=== PATIENT | male | born 1995 | race Caucasian/White ===

== ENCOUNTER 2021-02-20 22:04 | Emergency (ER) | payer SELFPAY ==
[2021-02-20 22:06] VITALS: BP 142/103; PULSE 119; RESP 18; TEMP 36.7; O2SAT 100; BMI 22.1
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
[2021-02-20] MEDS: cephALEXin 500 mg Capsule PO (22:27)
[2021-02-20] MEDS: HYDROcodone-acetaminophen 7.5-325 mg Tablet 1 TAB PO (22:27)
[2021-02-20 22:44] VITALS: BP 140/87; PULSE 103; RESP 18; O2SAT 98
[2021-02-20 22:48] VITALS: BP 140/87; PULSE 103; O2SAT 98
--- NOTE | 2021-02-20 23:26 | PC.NURSE ---
PD called, they chose not to come see the patient
== END 2021-02-20 23:28 | disposition home or self-care (01) ==
PROVIDERS: Emergency Provider Nurse Practitioner Family
DX: S61.235A Puncture wound without foreign body of left ring finger without damage to nail, initial encounter (principal); S61.233A Puncture wound without foreign body of left middle finger without damage to nail, initial encounter; W32.0XXA Accidental handgun discharge, initial encounter
CPT/HCPCS: 73130; 99283

== ENCOUNTER 2021-06-27 03:10 | Emergency (ER) | payer OTHER, SELFPAY ==
[2021-06-27 03:21] VITALS: BP 163/106; PULSE 83; RESP 18; TEMP 36.2; O2SAT 100; BMI 23.6
--- NOTE | 2021-06-27 03:50 | XRR_ITS ---
PROCEDURE INFORMATION: Exam: XR Chest Exam date and time: 06/27/2021 3:50 AM Age: 25 years old Clinical indication: Pain; Patient HX: Heart palpitations; Additional info: Cp TECHNIQUE: Imaging protocol: XR of the chest. Views: 1 view. COMPARISON: No relevant prior studies available. FINDINGS: Lungs: Unremarkable. No consolidation. Pleural spaces: Unremarkable. No pleural effusion. No pneumothorax. Heart/Mediastinum: Unremarkable. No cardiomegaly. Bones/joints: Unremarkable. XR/XR chest 1V portable [id number] IMPRESSION: No acute disease.
[2021-06-27 03:55] VITALS: BP 153/88; PULSE 86; O2SAT 98
--- NOTE | 2021-06-27 04:05 | ED_ITS ---
HPI - Arrhythmia/Palpitations General: Chief Complaint: Arrhythmia/Palpitations Stated Complaint: chest pain Time Seen by Provider: 06/27/21 03:37 History of Present Illness: HPI narrative: 25-year-old male presenting with intermittent left-sided chest discomfort on and off for the past 5 to 6 days. He states he vomited a couple of times on Tuesday, and had some chest discomfort. He also had some palpitations. He has had this intermittently since that time. He denies any cough, fever, leg swelling, long car trips or airplane rides, other symptoms. He had another episode before coming into the ER this morning. 50% MD complaint: palpitations Onset (ago): day(s) Duration: intermittent Severity: moderate Context: other Associated symptoms: Reports nausea; Deny cough, diaphoresis, muscle cramps, paresthesias, pre-syncope or vomiting Review of Systems Const: Denies: diaphoresis Card: Denies: pre-syncope GI: Reports: nausea; Denies: vomiting Musc: Denies: muscle cramps Physical Exam Const: COMMON NORMALS: no acute distress GENERAL APPEARANCE: cooperative and comfortable; not ill appearing HENMT: COMMON NORMALS: normocephalic HEAD & SCALP: normocephalic Eye: COMMON NORMALS: Equal, round and reactive pupils present and EOMs intact bilaterally PUPIL: Yes Equal, round and reactive pupils present Chest: COMMONS NORMALS: normal inspection of the chest Resp: COMMON NORMALS: normal respiratory effort, No retractions, No use of accessory muscles and clear to auscultation bilaterally AUSCULTATION: clear to auscultation bilaterally Cardio: COMMON NORMALS: regular rate and regular rhythm RATE: regular rate RHYTHM: regular rhythm GI: COMMON NORMALS: Normal to inspection, nondistended, normoactive bowel sounds present, Soft to palpation and non-tender PALPATION: Yes Soft to palpation Extremity: GENERAL: No edema Course Vital Signs: Vital signs: Vital Signs Temperature 97.1 F L 06/27/21 03:21 Pulse Rate 86 06/27/21 03:55 Respiratory Rate 18 06/27/21 03:21 Blood Pressure 153/88 06/27/21 03:55 Pulse Oximetry 98 06/27/21 03:55 MDM - Arrhythmia/Palpitations MDM Narrative: Medical decision making narrative: 25-year-old male with chest discomfort intermittently and palpitations. CBC and BMP are unremarkable. Troponin is 6. Chest x-ray is negative. D-dimer is nondetectable. EKG shows a normal sinus rhythm with normal axis and normal rate. Lab Data: Labs: Lab Results 06/27/21 06/27/21 06/27/21 Range/Units 04:00 04:00 04:00 WBC 5.2 (4.0-10.0) 10^3/ uL RBC 5.30 (4.1-5.3) 10^6/u L Hgb 16.4 (11.7-16.6) g/dL Hct 49.2 (42.0-52.0) % MCV 92.8 (80-94) fl MCH 30.9 (28.0-34.0) pg MCHC 33.3 (30.0-36.0) g/dL RDW 11.8 L (12.1-15.1) % Plt Count 260 (130-400) 10^3/c mm MPV 9.7 (7.4-10.4) fL Neut % (Auto) 39.7 % Lymph % (Auto) 46.1 % [place] % (Auto) 8.1 % Eos % (Auto) 4.6 % Baso % (Auto) 1.3 % Neut # (Auto) 2.07 (1.8-7.7) 10^3/u L Lymph # (Auto) 2.4 (0.8-4.8) 10^3/u L [place] # (Auto) 0.4 (0.2-0.9) 10^3/u L Eos # (Auto) 0.2 (0.0-0.8) 10^3/u L Baso # (Auto) 0.1 (0.0-0.1) 10^3/u L Nucleated RBC % (a uto) 0 % Nucleated RBCs # 0.0 /100WBC D-Dimer <= 0.27 (0-0.59) ug/mIFE U Sodium 141 (136-145) mmol/L Potassium 4.0 (3.5-5.1) mmol/L Chloride 104 (98-107) mmol/L Carbon Dioxide 26 (22-29) mmol/L Anion Gap 15.0 (5-19) BUN 12 (6-20) mg/dL Creatinine 0.8 (0.7-1.2) mg/dL GFR Calculation 116.0 (90-130) mL/min Glucose 102 (65-115) mg/dL Calculated Osmolal ity 292 (285-295) mOsm/k g Calcium 10.0 (8.5-10.5) mg/dL Total Bilirubin 0.6 (0.15-1.2) mg/dL AST 20 (0-40) U/L ALT 32 (0-41) U/L Alkaline Phosphata se 101 (40-130) IU/L Troponin T Gen 5 n g/L (0-15) ng/L Total Protein 7.7 (6.6-8.7) g/dL Albumin 4.8 (3.5-5.2) g/dL Globulin 2.9 (1.3-4.6) g/dL 06/27/21 Range/Units 04:00 WBC (4.0-10.0) 10^3/ uL RBC (4.1-5.3) 10^6/u L Hgb (11.7-16.6) g/dL Hct (42.0-52.0) % MCV (80-94) fl MCH (28.0-34.0) pg MCHC (30.0-36.0) g/dL RDW (12.1-15.1) % Plt Count (130-400) 10^3/c mm MPV (7.4-10.4) fL Neut % (Auto) % Lymph % (Auto) % [place] % (Auto) % Eos % (Auto) % Baso % (Auto) % Neut # (Auto) (1.8-7.7) 10^3/u L Lymph # (Auto) (0.8-4.8) 10^3/u L [place] # (Auto) (0.2-0.9) 10^3/u L Eos # (Auto) (0.0-0.8) 10^3/u L Baso # (Auto) (0.0-0.1) 10^3/u L Nucleated RBC % (a uto) % Nucleated RBCs # /100WBC D-Dimer (0-0.59) ug/mIFE U Sodium (136-145) mmol/L Potassium (3.5-5.1) mmol/L Chloride (98-107) mmol/L Carbon Dioxide (22-29) mmol/L Anion Gap (5-19) BUN (6-20) mg/dL Creatinine (0.7-1.2) mg/dL GFR Calculation (90-130) mL/min Glucose (65-115) mg/dL Calculated Osmolal ity (285-295) mOsm/k g Calcium (8.5-10.5) mg/dL Total Bilirubin (0.15-1.2) mg/dL AST (0-40) U/L ALT (0-41) U/L Alkaline Phosphata se (40-130) IU/L Troponin T Gen 5 n g/L 6 (0-15) ng/L Total Protein (6.6-8.7) g/dL Albumin (3.5-5.2) g/dL Globulin (1.3-4.6) g/dL Discharge Plan Discharge Patient Disposition: Home Clinical Impression: Chest pain Qualifiers: Chest pain type: unspecified Qualified Code(s): R07.9 - Chest pain, unspecified Condition: Stable Prescriptions: New Medrol (Srikanth) 4 mg tablets,dose pack See Rx Instructions .ROUTE .COMPLEX Qty: 21 RF: 0 No Action hydrocodone-acetaminophen 5-325 mg tablet 1 tab PO Q6H PRN (Reason: pain) Qty: 14 RF: 0 Discharge Orders: Discharge ED (Routine); Ordered 06/27/21 Ordered By: Kareem Willoughby Discharge Diet: Advance as tolerated Discharge Activity: Increase activity as tolerated Patient Instructions: Chest Pain (ED) Activity Restrictions/Additional Instructions: Return to the ER for worsening pain despite treatment, fever greater than 100, shortness of breath, worsening palpitations or fast heart rate, any other con cerning symptoms. Coding Level of Care Code ED Parks Recreation Coordinator for Isaac Fwd Exam Comprehensive
[2021-06-27 04:19] LABS: Basophils # 0.1 10^3/uL (0.0-0.1); Basophils % 1.3 %; Eosinophils # 0.2 10^3/uL (0.0-0.8); Eosinophils % 4.6 %; Hematocrit 49.2 % (42.0-52.0); Hemoglobin 16.4 g/dL (11.7-16.6); Lymphocytes # 2.4 10^3/uL (0.8-4.8); Lymphocytes % 46.1 %; Mean Corpuscular HGB Conc 33.3 g/dL (30.0-36.0); Mean Corpuscular Hemoglobin 30.9 pg (28.0-34.0); Mean Corpuscular Volume 92.8 fl (80-94); Mean Platelet Volume 9.7 fL (7.4-10.4); Monocytes # 0.4 10^3/uL (0.2-0.9); Monocytes % 8.1 %; Neutrophils # 2.07 10^3/uL (1.8-7.7); Neutrophils % 39.7 %; Nucleated Red Blood Cells % 0 %; Platelet Count 260 10^3/cmm (130-400); Red Cell Distribution Width 11.8 % (12.1-15.1); White Blood Count 5.2 10^3/uL (4.0-10.0)
[2021-06-27 04:36] LABS: Alanine Aminotransferase 32 U/L (0-41); Albumin Level 4.8 g/dL (3.5-5.2); Alkaline Phosphatase 101 IU/L (40-130); Aspartate Amino Transferase 20 U/L (0-40); Blood Urea Nitrogen 12 mg/dL (6-20); Carbon Dioxide 26 mmol/L (22-29); Chloride 104 mmol/L (98-107); Globulin 2.9 g/dL (1.3-4.6); Glucose 102 mg/dL (65-115); Osmolality Calculated 292 mOsm/kg (285-295); Sodium 141 mmol/L (136-145); Total Bilirubin 0.6 mg/dL (0.15-1.2); Total Protein 7.7 g/dL (6.6-8.7)
[2021-06-27 04:40] LABS: Troponin T (5th) Once 6 ng/L (0-15)
[2021-06-27 05:08] LABS: D Dimer <= 0.27 ug/mIFEU (0-0.59)
[2021-06-27 05:49] VITALS: BP 127/79; PULSE 92; RESP 18; O2SAT 98
--- NOTE | 2021-06-29 13:37 | DCPLANNER ---
Addendum entered by Gabriela Bearden 07/01/21 10:03: manager msw had message that patient called back and wanted a primary care physician. manager msw called patient, he stated that he did want a primary care physician. manager msw called [facility], spoke with Alexia, gave clinic patients information. A follow up appointment was scheduled for Tuesday, July 06, 2021 at 4:[address] Benitez at [facility]. manager msw called patient and gave patient the appointment information. Addendum entered by Gabriela Bearden 06/29/21 13:39: Patient called case briefer back, stating that he did not want to get established with anyone at this time. Original Note: manager msw had message to speak with patient about getting established with a primary care physician. manager msw called phone number [phone], unable to speak with patient at this time, a voicemail was left for patient to return child support case officer phone call.
--- NOTE | 2021-07-08 12:05 | DCPLANNER ---
Patient had a follow up appointment scheduled for 07.06.[address] Badillo at [facility] - appointment was cancelled.
== END 2021-06-27 05:52 | disposition home or self-care (01) ==
PROVIDERS: Emergency Provider Emergency Medicine
DX: R07.9 Chest pain, unspecified (principal)
CPT/HCPCS: 71045; 80053; 84484; 85025; 85378; 99283

== ENCOUNTER 2022-03-25 19:43 | Emergency (ER) | payer OTHER, SELFPAY ==
[2022-03-25 19:49] VITALS: BP 141/85; PULSE 80; RESP 18; TEMP 36.7; O2SAT 99
--- NOTE | 2022-03-25 19:55 | ECG_ITS ---
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 Measurements Intervals [place] Rate: 88 P: 66 NE: 147 QRS: 65 QRSD: 99 T: 57 QT: 325 QTc: 395 Interpretive Statements SINUS RHYTHM POSSIBLE RIGHT VENTRICULAR CONDUCTION DELAY [RSR (QR) IN V1/V2] MODERATE ST DEPRESSION [0.05+ mV ST DEPRESSION] No previous ECG available for comparison Electronically Signed On 03-25-2022 22:52:34 CDT by Moses Montoya M.D. [id number]
--- NOTE | 2022-03-25 20:38 | XRR_ITS ---
PROCEDURE INFORMATION: Exam: XR Chest Exam date and time: 03/25/2022 9:00 PM Age: 26 years old Clinical indication: Shortness of breath; Additional info: KATHERINE Raymond TECHNIQUE: Imaging protocol: XR of the chest. Views: 1 view. COMPARISON: CR (CHEST, ) 06/27/2021 3:49 AM FINDINGS: Lungs: Unremarkable. No consolidation. Pleural spaces: Unremarkable. No pleural effusion. No pneumothorax. Heart/Mediastinum: Unremarkable. No cardiomegaly. Bones/joints: Unremarkable. XR/XR chest 1V portable [id number] IMPRESSION: No acute findings.
--- NOTE | 2022-03-25 22:15 | ED_ITS ---
HPI - Chest Pain General: Chief Complaint: Chest Pain Stated Complaint: CP Time Seen by Provider: 03/25/22 22:15 History of Present Illness: A 26-year-old male patient comes in today with some complaints of chest discomfort. Patient reports nothing improves or worsens the pain. Patient denies any fever or chills or nausea or vomiting. Patient appears well. Patient appears in no pain. Patient moves all extremities without discomfort. 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 Patient believes that may be contributing to his discomfort. Patient has a history of anxiety but reports no problems with anxiety over the last few weeks. Patient stopped smoking 2 years ago. Family history has no cardiac problems. Associated symptoms: Deny dyspnea or fever(s) Review of Systems Const: Denies: fever(s) Card: Denies: chest pain Resp: Denies: dyspnea Musc: Denies: extremity pain Skin/Breast: Denies: rash Physical Exam Const: COMMON NORMALS: alert HENMT: COMMON NORMALS: normocephalic HEAD & SCALP: normocephalic Neck/C-Spine: COMMON NORMALS: full ROM Chest: COMMONS NORMALS: normal palpation of entire chest wall Resp: COMMON NORMALS: normal respiratory effort and clear to auscultation bilaterally AUSCULTATION: clear to auscultation bilaterally Cardio: COMMON NORMALS: regular rate RATE: regular rate GI: AUSCULTATION: Yes normoactive bowel sounds PALPATION: No Tenderness to palpation present (GI) : COMMON NORMALS: Yes no CVA tenderness BLADDER/KIDNEY EXAM: Yes no CVA tenderness Back/Pelvis: COMMON NORMALS: no CVA tenderness Extremity: NARRATIVE EXTREMITY EXAM: No calf tenderness or swelling of the lower legs. Neuro: SENSORIUM/ORIENTATION: Yes alert Skin: COMMON NORMALS: no rashes or lesions noted GENERAL SKIN EXAM: no rashes or lesions noted Course Vital Signs: Vital signs: Vital Signs Temperature 98.0 F 03/25/22 19:49 Pulse Rate 80 03/25/22 19:49 Respiratory Rate 18 03/25/22 19:49 Blood Pressure 141/85 03/25/22 19:49 Pulse Oximetry 99 03/25/22 19:49 MDM - Chest Pain Medical Decision Making 26-year-old male patient comes in today with some complaints of chest discomfort. Patient is nonspecific with his complaint. On exam patient does have some mild chest wall tenderness on palpation but nothing significant. Patient moves all extremities well. Heart rates regular. Skin is warm and dry. No calf pain is noted. No swelling is noted in the lower extremities. Differential diagnosis includes anxiety, depression, costochondritis, pneumothorax. Chest x-ray was unremarkable. EKG showed a sinus rhythm without any ST elevation or other abnormality. Reviewed the exam with patient recommended follow-up with primary care for further evaluation and treatment. Patient reported understanding and agreed to plan with need for follow-up. Lab Data Radiology Impressions Chest X-Ray 03/25/22 20:38 IMPRESSION: No acute findings. Discharge Plan Discharge Patient Disposition: Home Clinical Impression: Atypical chest pain Condition: Stable Prescriptions: Discontinued methylprednisolone [Medrol (Srikanth)] 4 mg tablets,dose pack See Rx Instructions .ROUTE .COMPLEX Qty: 21 0RF Rx Instructions: orally per package directions hydrocodone-acetaminophen 5-325 mg tablet 1 tab PO Q6H PRN (Reason: pain) Qty: 14 0RF Discharge Orders: Discharge ED (Routine); Ordered 03/25/22 Ordered By: Todd Ndiaye Discharge Diet: Usual diet Discharge Activity: Resume usual activity Patient Instructions: Chest Pain (ED) Activity Restrictions/Additional Instructions: Home and rest. Drink plenty of fluids. Avoid caffeinated beverages. Maintain a healthy lifestyle with plenty of fresh fruits and vegetables and routine exercise. Follow-up with primary care for further instructions. Have your blood pressure rechecked. Return to ER for worsening symptoms such as worsening chest pain, increasing shortness of breath, high fever greater than 100.4, or bloody sputum. Coding Level of Care Code ED Ground Operations Superintendent for Isaac Mobley
== END 2022-03-25 22:50 | disposition home or self-care (01) ==
PROVIDERS: Emergency Provider Nurse Practitioner Family
DX: R07.89 Other chest pain (principal)
CPT/HCPCS: 71045; 93005; 99283

== ENCOUNTER 2024-07-07 04:27 | Emergency (ER) | payer SELFPAY ==
[2024-07-07 04:34] VITALS: BP 145/90; PULSE 127; RESP 18; TEMP 37.1; O2SAT 100; BMI 22.1
--- NOTE | 2024-07-07 04:40 | ECG_ITS ---
[facility] Test Date: 2024-07-07 Pat Name: Spike Shea Department: Room: Gender: Male Assistant Manager Of Operations: : 1995 Requested By: Kareem Perdomo Order Number: [id number] Beni MD: Moses Montoya M.D. Measurements Intervals [place] Rate: 126 P: 74 UT: 170 QRS: 75 QRSD: 98 T: 63 QT: 339 QTc: 491 Interpretive Statements SINUS TACHYCARDIA INCOMPLETE RIGHT BUNDLE BRANCH BLOCK [90+ ms QRS DURATION, TERMINAL R IN V1/V2, 40+ ms S IN I/aVL/V4/V5/V6] Compared to ECG 03/25/2022 19:55:07 Incomplete right bundle-branch block now present Sinus rhythm no longer present ST (T wave) deviation no longer present Electronically Signed On 07-07-2024 7:20:05 CDT by Moses Montoya M.D. [id number]
[2024-07-07 04:56] LABS: Basophils # 0.1 10^3/uL (0.0-0.1); Basophils % 1.3 %; Eosinophils % 0.1 %; Hematocrit 45.8 % (37-53); Lymphocytes # 1.5 10^3/uL (0.8-4.8); Lymphocytes % 21.7 %; Mean Corpuscular HGB Conc 34.1 g/dL (30-55); Mean Corpuscular Volume 91.1 fl (82-101); Mean Platelet Volume 9.7 fL (7.4-10.4); Monocytes # 0.4 10^3/uL (0.2-0.9); Monocytes % 6.1 %; Neutrophils # 4.85 10^3/uL (1.8-7.7); Neutrophils % 70.5 %; Nucleated Red Blood Cells % 0 %; Platelet Count 326 10^3/cmm (157-399); Red Blood Count 5.03 10^6/uL (3.85-5.65); Red Cell Distribution Width 12.7 % (12.1-15.1); White Blood Count 6.88 10^3/uL (3.29-11.43)
[2024-07-07 05:00] VITALS: BP 131/87; PULSE 114; RESP 28; O2SAT 100
--- NOTE | 2024-07-07 05:09 | W.ED.ARRPALP ---
HPI - Arrhythmia/Palpitations General: Chief Complaint: Arrhythmia/Palpitations Stated Complaint: Fast heartrate shooting pain L arm withdrawls Time Seen by Provider: 07/07/24 05:01 History of Present Illness: 28-year-old male with chest discomfort, palpitations, radiating into his left arm. He last had an alcoholic drink about 8 hours ago. He believes this may be alcohol withdrawal, but is not sure. He is had similar symptoms in the past. No history of heart disease or arrhythmia. No recent illness or fever. Related Data Previous Rx's Medication Instructions Recorded chlordiazepoxide HCl 25 mg capsule 25 mg PO Q8H PRN alcohol 07/07/24 withdrawal #10 caps Allergies Allergy/AdvReac Type Severity Reaction Status Date / Time No Known Allergies Allergy Verified 06/27/21 03:20 Physical Exam Const: GENERAL APPEARANCE: cooperative; not ill appearing and not frail appearing HENMT: COMMON NORMALS: normocephalic, atraumatic and Normal external nose present HEAD & SCALP: normocephalic and atraumatic FACE & SINUS: normal facial exam and face symmetric NOSE: Normal external nose present Eye: COMMON NORMALS: Equal, round and reactive pupils present and EOMs intact bilaterally PUPIL: Yes Equal, round and reactive pupils present Neck/C-Spine: GENERAL: Yes trachea midline Chest: CHEST: Yes Symmetrical chest wall rise Resp: COMMON NORMALS: normal respiratory effort, No retractions, No use of accessory muscles and clear to auscultation bilaterally AUSCULTATION: clear to auscultation bilaterally Cardio: COMMON NORMALS: regular rhythm RATE: tachycardic RHYTHM: regular rhythm GI: COMMON NORMALS: Normal to inspection, nondistended, normoactive bowel sounds present Extremity: COMMON NORMALS: no pedal edema Neuro: ANILA COMA SCALE: document GCS findings [place] coma scale eye opening: Spontaneous Anila coma scale verbal response: Orientated [place] coma scale motor response: Obey commands Anila coma scale total score: 15 SENSORY EXAM: Yes extremities (intact) Psych: COMMON NORMALS: speech normal SPEECH: Yes normal speech Skin: COMMON NORMALS: no rashes or lesions noted GENERAL SKIN EXAM: no rashes or lesions noted Course Vital Signs: Vital signs: Vital Signs Temperature 98.7 F 07/07/24 04:34 Pulse Rate 87 07/07/24 06:00 Respiratory Rate 15 07/07/24 06:00 Blood Pressure 144/78 08/31/24 06:00 Pulse Oximetry 98 07/07/24 06:00 Oxygen Delivery Me thod Room Air 07/07/24 06:00 MDM - Arrhythmia/Palpitations Medical Decision Making EKG shows sinus tachycardia with a rate of 120. [place] is normal. Intervals normal. No significant ST wave change. EKG time is 04: 42. CBC is normal. Other laboratory not terribly remarkable. He does have a slight anion gap. He received fluids, thiamine, and a small dose of metoprolol. Heart rate is now 87. Symptoms are improved. He did receive 1 dose of IV Ativan as well. He will go home on chlordiazepoxide taper for alcohol withdrawal. Oral hydration. Return for worsening symptoms. Lab Data 07/07/24 04:50 07/07/24 04:50 Radiology Impressions Chest X-Ray 07/07/24 05:12 IMPRESSION: No acute findings. Laboratory Results WBC 6.88 10^3/uL (3.29-11.43) 07/07/24 04:50 RBC 5.03 10^6/uL (3.85-5.65) 07/07/24 04:50 Hgb 15.60 g/dL (11.27-16.99) 07/07/24 04:50 Hct 45.8 % (37-53) 07/07/24 04:50 MCV 91.1 fl (82-101) 07/07/24 04:50 MCH 31.0 pg (27-33) 07/07/24 04:50 MCHC 34.1 g/dL (30-55) 07/07/24 04:50 RDW 12.7 % (12.1-15.1) 07/07/24 04:50 Plt Count 326 10^3/cmm (157-399) 07/07/24 04:50 MPV 9.7 fL (7.4-10.4) 07/07/24 04:50 Neut % (Auto) 70.5 % 07/07/24 04:50 Lymph % (Auto) 21.7 % 07/07/24 04:50 [place] % (Auto) 6.1 % 07/07/24 04:50 Eos % (Auto) 0.1 % 07/07/24 04:50 Baso % (Auto) 1.3 % 07/07/24 04:50 Neut # (Auto) 4.85 10^3/uL (1.8-7.7) 07/07/24 04:50 Lymph # (Auto) 1.5 10^3/uL (0.8-4.8) 07/07/24 04:50 [place] # (Auto) 0.4 10^3/uL (0.2-0.9) 07/07/24 04:50 Eos # (Auto) 0.0 10^3/uL (0.0-0.8) 07/07/24 04:50 Baso # (Auto) 0.1 10^3/uL (0.0-0.1) 07/07/24 04:50 Nucleated RBC % (auto) 0 % 07/07/24 04:50 Nucleated RBCs # 0.0 /100WBC 07/07/24 04:50 Sodium 139 mmol/L (136-145) 07/07/24 04:50 Potassium 3.6 mmol/L (3.5-5.1) 07/07/24 04:50 Chloride 99 mmol/L (98-107) 07/07/24 04:50 Carbon Dioxide 18 mmol/L (22-29) L 07/07/24 04:50 Anion Gap 25.6 (5-19) H 07/07/24 04:50 BUN 6 mg/dL (6-20) 07/07/24 04:50 Creatinine 0.7 mg/dL (0.7-1.2) 07/07/24 04:50 GFR Calculation 132.4 mL/min (90-130) H 07/07/24 04:50 Glucose 134 mg/dL (65-115) H 07/07/24 04:50 Calculated Osmolality 288 mOsm/kg (285-295) 07/07/24 04:50 Calcium 10.0 mg/dL (8.5-10.5) 07/07/24 04:50 Total Bilirubin 0.7 mg/dL (0.15-1.2) 07/07/24 04:50 AST 22 U/L (0-40) 07/07/24 04:50 ALT 29 U/L (0-41) 07/07/24 04:50 Alkaline Phosphatase 77 U/L (40-130) 07/07/24 04:50 Troponin T Baseline < 6 ng/L (0-15) 07/07/24 04:50 Total Protein 8.1 g/dL (6.6-8.7) 07/07/24 04:50 Albumin 5.1 g/dL (3.5-5.2) 07/07/24 04:50 Globulin 3.0 g/dL (1.3-4.6) 07/07/24 04:50 TSH 2.12 uIU/mL (0.27-4.20) 07/07/24 04:50 Ethyl Alcohol 24 mg/dL (0-10) H 07/07/24 04:50 All radiology interpretation(s) finalized by discharge Discharge Plan Discharge Patient Disposition: Home Clinical Impression: Palpitations, Sinus tachycardia Condition: Stable Prescriptions: New chlordiazepoxide HCl 25 mg capsule 25 mg PO Q8H PRN (Reason: alcohol withdrawal) Qty: 10 0RF Discharge Orders: Discharge ED (Routine); Ordered 07/07/24 Ordered By: Kareem Willoughby Referrals: Jayleen Vides PA [Primary Care Provider] - 1-3 days Patient Instructions: Heart Palpitations (ED), Tachycardia (ED), Opioid Safety, Pain Management Activity Restrictions/Additional Instructions: Hydrate with clear nonalcoholic liquids for the next 48 hours. Take medication 3 times daily for 2 days, twice daily for a day, and once daily for a day. This is to prevent alcohol withdrawal. See your doctor next week. Return for worsening symptoms. Coding Level of Care Code ED Project Specialist for Isaac Mobley
--- NOTE | 2024-07-07 05:11 | PC.NURSE ---
WATER PROVIDED TO PT PER REQUEST AND PROVIDER APPROVAL, WATER AND COFFEE PROVIDED TO SIGNIFICANT OTHER. PT DENIES FURTHER NEEDS, NO ACUTE DISTRESS NOTED.
--- NOTE | 2024-07-07 05:12 | XRR_ITS ---
PROCEDURE INFORMATION: Exam: XR Chest Exam date and time: 07/07/2024 5:22 AM Age: 28 years old Clinical indication: Pain; Chest pressure; Patient HX: C/O chest discomfort with palpitations; Additional info: Chest pain palpitation TECHNIQUE: Imaging protocol: Radiologic exam of the chest. Views: 1 view. COMPARISON: CR XR chest 1V portable [id number] 03/25/2022 9:00 PM FINDINGS: Lungs: Unremarkable. No consolidation. Pleural spaces: Unremarkable. No pleural effusion. No pneumothorax. Heart/Mediastinum: Unremarkable. No cardiomegaly. Bones/joints: Unremarkable. XR/XR chest 1V portable [id number] IMPRESSION: No acute findings.
[2024-07-07 05:15] VITALS: BP 130/78; PULSE 100; RESP 24; O2SAT 100
[2024-07-07 05:15] LABS: Troponin(5th) Baseline < 6 ng/L (0-15)
[2024-07-07 05:17] LABS: Alanine Aminotransferase 29 U/L (0-41); Albumin Level 5.1 g/dL (3.5-5.2); Alkaline Phosphatase 77 U/L (40-130); Anion Gap 25.6 (5-19); Aspartate Amino Transferase 22 U/L (0-40); Blood Urea Nitrogen 6 mg/dL (6-20); Carbon Dioxide 18 mmol/L (22-29); Chloride 99 mmol/L (98-107); Creatinine Clr Calc Pharmacy 151.9825; Glomerular Filtration Rate 132.4 mL/min (90-130); Glucose 134 mg/dL (65-115); Osmolality Calculated 288 mOsm/kg (285-295); Potassium 3.6 mmol/L (3.5-5.1); Sodium 139 mmol/L (136-145); Total Bilirubin 0.7 mg/dL (0.15-1.2); Total Protein 8.1 g/dL (6.6-8.7)
[2024-07-07 05:30] VITALS: BP 139/83; PULSE 98; RESP 27; O2SAT 100
[2024-07-07 05:40] LABS: Alcohol Level 24 mg/dL (0-10); Thyroid Stimulating Hormone 2.12 uIU/mL (0.27-4.20)
[2024-07-07] MEDS: metoprolol tartrate 1 mg/1 mL SDV 5 mL 2.5 MG IVP (05:43)
[2024-07-07] MEDS: sodium chloride 0.9% 1,000 ML 999 ML IV (05:43)
[2024-07-07] MEDS: LORazepam 2 mg/mL INJ 1 mL 1 MG IVP (05:46)
[2024-07-07 06:00] VITALS: BP 144/78; PULSE 87; RESP 15; O2SAT 98
[2024-07-07 06:30] VITALS: BP 128/76; PULSE 86; RESP 24; O2SAT 98
== END 2024-07-07 07:08 | disposition home or self-care (01) ==
PROVIDERS: Emergency Provider Emergency Medicine; PCP Physician Assistant
DX: R00.2 Palpitations (principal); R00.0 Tachycardia, unspecified
CPT/HCPCS: 36415; 71045; 80053; 80307; 84443; 84484; 85025; 93005; 96374; 96375; 99285; J2060; J3411; J3490; J7030

== ENCOUNTER 2024-11-09 19:42 | Emergency (ER) | payer OTHER, SELFPAY ==
--- NOTE | 2024-11-09 19:47 | ECG_ITS ---
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 Measurements Intervals [place] Rate: 119 P: 72 RI: 132 QRS: 70 QRSD: 100 T: 57 QT: 301 QTc: 425 Interpretive Statements SINUS TACHYCARDIA ABNORMAL RHYTHM ECG Compared to ECG 07/07/2024 04:42:18 Incomplete right bundle-branch block no longer present Electronically Signed On 11-09-2024 21:37:59 MANAGER DOCUMENT by Marion Zapien M.D. [email or web address]
[2024-11-09 19:53] VITALS: BP 159/92; PULSE 123; RESP 22; TEMP 36.7; O2SAT 97; BMI 22.1
== END 2024-11-09 20:26 | disposition left against medical advice (07) ==
PROVIDERS: Emergency Provider Family Medicine; PCP Physician Assistant
DX: Z53.21 Procedure and treatment not carried out due to patient leaving prior to being seen by health care provider (principal)
CPT/HCPCS: 93005

== ENCOUNTER 2025-04-14 13:29 | Emergency (ER) | payer OTHER, SELFPAY ==
--- NOTE | 2025-04-14 13:31 | ECG_ITS ---
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 Measurements Intervals [place] Rate: 126 P: 75 DC: 134 QRS: 67 QRSD: 94 T: 66 QT: 294 QTc: 426 Interpretive Statements SINUS TACHYCARDIA INCOMPLETE RIGHT BUNDLE BRANCH BLOCK [90+ ms QRS DURATION, TERMINAL R IN V1/V2, 40+ ms S IN I/aVL/V4/V5/V6] ABNORMAL RHYTHM ECG Compared to ECG 11/09/2024 19:50:33 Incomplete right bundle-branch block now present Electronically Signed On 04-15-2025 08:58:49 CDT by Moses Montoya M.D. [id number]
--- NOTE | 2025-04-14 13:31 | XRR_ITS ---
PROCEDURE INFORMATION: Exam: XR Chest Exam date and time: 04/14/2025 2:03 PM Age: 29 years old Clinical indication: Pain; Chest pressure; Additional info: Cp TECHNIQUE: Imaging protocol: Radiologic exam of the chest. Views: 1 view. COMPARISON: CR XR chest 1V portable [id number] 07/07/2024 5:22 AM FINDINGS: Lungs: Unremarkable. No consolidation. Pleural spaces: Unremarkable. No pleural effusion. No pneumothorax. Heart/Mediastinum: Unremarkable. No cardiomegaly. Bones/joints: Unremarkable. XR/XR chest 1V portable [id number] IMPRESSION: No acute findings.
[2025-04-14 13:37] VITALS: BP 154/92; PULSE 64; RESP 12; TEMP 37.1; O2SAT 95; BMI 20.7
[2025-04-14 14:02] VITALS: BP 142/88; PULSE 119; RESP 18; O2SAT 97
--- NOTE | 2025-04-14 14:03 | ED_ITS ---
HPI - Chest Pain 2 General: Chief Complaint: Chest Pain Stated Complaint: chest pain Time Seen by Provider: 04/14/25 13:44 Source: patient Mode of arrival: ambulatory Limitations: no limitations History of Present Illness: 29-year-old male who states that he has been on a 4-day binge of drinking states he had been drinking today as well. States today started having some palpitations along with some sharp chest pains. He denies any vomiting or diarrhea does not have any history of alcohol withdrawals in the past. Associated symptoms: Reports dyspnea; Deny abdominal pain, fever(s), nausea or vomiting Related Data Home Medications ?Medication ?Instructions ?Recorded ?Confirmed No Known Home Medications 04/14/25 0607/01 Allergies Allergy/AdvReac Type Severity Reaction Status Date / Time No Known Allergies Allergy Verified 11/09/24 20:00 Review of Systems 2 Const: Denies: fever(s), chills, body aches or change in appetite ENMT: Denies: throat pain or dental pain Card: Reports: chest pain Resp: Reports: dyspnea GI: Denies: abdominal pain, nausea, vomiting or diarrhea : Denies: dysuria Musc: Denies: neck pain or back pain Skin/Breast: Denies: rash Neuro: Denies: headache(s) Physical Exam 2 Const: COMMON NORMALS: no acute distress, patient oriented x3 and healthy appearing HENMT: COMMON NORMALS: normocephalic and atraumatic HEAD & SCALP: n ormocephalic and atraumatic Neck/C-Spine: COMMON NORMALS: full ROM and supple Chest: COMMONS NORMALS: normal inspection of the chest Resp: COMMON NORMALS: normal respiratory effort, No retractions, No use of accessory muscles and clear to auscultation bilaterally AUSCULTATION: clear to auscultation bilaterally Cardio: COMMON NORMALS: regular rhythm and No murmurs present (Cardio) R ATE: tachycardic RHYTHM: regular rhythm GI: COMMON NORMALS: Normal to inspection, nondistended, normoactive bowel sounds present, Soft to palpation, non-tender and no masses PALPATION: Yes Soft to palpation Extremity: COMMON NORMALS: normal to inspection and full ROM Neuro: COMMON NORMALS: patient oriented x3, moves all extremities and no focal motor deficits Psych: COMMON NORMALS: mental status grossly normal, Normal thought process present and cooperative THOUGHT PROCESS: Normal thought process present Skin: COMMON NORMALS: no rashes or lesions noted and no wounds GENERAL SKIN EXAM: no rashes or lesions noted Course 2 Vital Signs: Vital signs: Vital Signs Temperature 98.8 F 04/14/25 13:37 Pulse Rate 96 04/14/25 15:38 Respiratory Rate 18 04/14/25 14:02 Blood Pressure 132/83 04/14/25 15:38 Pulse Oximetry 97 04/14/25 15:38 Oxygen Delivery Me thod Room Air 04/14/25 13:37 MDM - Chest Pain Medical Decision Making Patient presents for chest pain also palpitations likely from his alcohol abuse he feels much improved here after IV fluids. Troponins D-dimer negative he stable for discharge follow-up PCP return if worsening. Medical Records I reviewed the patient's medical records. Lab Data I reviewed the patient's lab results. 04/14/25 14:08 04/14/25 14:08 Radiology Impressions Chest X-Ray 04/14/25 13:31 IMPRESSION: No acute findings. Laboratory Results WBC 10.76 10^3/uL (3.29-11.43) 04/14/25 14:08 RBC 5.13 10^6/uL (3.85-5.65) 04/14/25 14:08 Hgb 15.70 g/dL (11.27-16.99) 04/14/25 14:08 Hct 45.9 % (37-53) 04/14/25 14:08 MCV 89.5 fl (82-101) 04/14/25 14:08 MCH 30.6 pg (27-33) 04/14/25 14:08 MCHC 34.2 g/dL (30-55) 04/14/25 14:08 RDW 12.3 % (12.1-15.1) 04/14/25 14:08 Plt Count 313 10^3/cmm (157-399) 04/14/25 14:08 MPV 9.5 fL (7.4-10.4) 04/14/25 14:08 Neut % (Auto) 77.0 % 04/14/25 14:08 Lymph % (Auto) 14.9 % 04/14/25 14:08 [place] % (Auto) 6.9 % 04/14/25 14:08 Eos % (Auto) 0.2 % 04/14/25 14:08 Baso % (Auto) 0.8 % 04/14/25 14:08 Neut # (Auto) 8.29 10^3/uL (1.8-7.7) H 04/14/25 14:08 Lymph # (Auto) 1.6 10^3/uL (0.8-4.8) 04/14/25 14:08 [place] # (Auto) 0.7 10^3/uL (0.2-0.9) 04/14/25 14:08 Eos # (Auto) 0.0 10^3/uL (0.0-0.8) 04/14/25 14:08 Baso # (Auto) 0.1 10^3/uL (0.0-0.1) 04/14/25 14:08 Nucleated RBC % (auto) 0 % 04/14/25 14:08 Nucleated RBCs # 0.0 /100WBC 04/14/25 14:08 D-Dimer 0.33 ug/mLFEU (0-0.59) 04/14/25 14:08 Sodium 136 mmol/L (136-145) 04/14/25 14:08 Potassium 4.2 mmol/L (3.5-5.1) 04/14/25 14:08 Chloride 98 mmol/L (98-107) 04/14/25 14:08 Carbon Dioxide 18 mmol/L (22-29) L 04/14/25 14:08 Anion Gap 24.2 (5-19) H 04/14/25 14:08 BUN 14 mg/dL (6-20) 04/14/25 14:08 Creatinine 1.3 mg/dL (0.7-1.2) H 04/14/25 14:08 GFR Calculation 64.4 mL/min (90-130) L 04/14/25 14:08 Glucose 113 mg/dL (65-115) 04/14/25 14:08 Calculated Osmolality 283 mOsm/kg (285-295) L 04/14/25 14:08 Calcium 9.7 mg/dL (8.5-10.5) 04/14/25 14:08 Total Bilirubin 0.6 mg/dL (0.15-1.2) 04/14/25 14:08 AST 21 U/L (0-40) 04/14/25 14:08 ALT 25 U/L (0-41) 04/14/25 14:08 Alkaline Phosphatase 76 U/L (40-130) 04/14/25 14:08 Troponin T Baseline < 6 ng/L (0-15) 04/14/25 14:08 Total Protein 7.7 g/dL (6.6-8.7) 04/14/25 14:08 Albumin 4.9 g/dL (3.5-5.2) 04/14/25 14:08 Globulin 2.8 g/dL (1.3-4.6) 04/14/25 14:08 Ethyl Alcohol 122 mg/dL (0-10) H 04/14/25 14:08 All radiology interpretation(s) finalized by discharge Discharge Plan Discharge Patient Disposition: Home Clinical Impression: Chest pain, Alcohol intoxication Condition: Stable Prescriptions: No Action No Known Home Medications Discharge Orders: Discharge ED (Routine); Ordered 04/14/25 Ordered By: Ana M Rueda Referrals: Jayleen Vides PA [Primary Care Provider, Physicians Instructional Specialist] Discharge Diet: Advance as tolerated Discharge Activity: Resume usual activity Patient Instructions: Chest Pain (ED), Alcohol Intoxication (ED) Print Language: [place]i Coding Level of Care Code ED Jewelry Sales Coordinator for Isaac Mobley
[2025-04-14] MEDS: LORazepam 1 MG/0.5 ML injection IVP (14:13)
[2025-04-14 14:21] LABS: Basophils # 0.1 10^3/uL (0.0-0.1); Basophils % 0.8 %; Eosinophils % 0.2 %; Hematocrit 45.9 % (37-53); Lymphocytes # 1.6 10^3/uL (0.8-4.8); Lymphocytes % 14.9 %; Mean Corpuscular HGB Conc 34.2 g/dL (30-55); Mean Corpuscular Hemoglobin 30.6 pg (27-33); Mean Corpuscular Volume 89.5 fl (82-101); Mean Platelet Volume 9.5 fL (7.4-10.4); Monocytes # 0.7 10^3/uL (0.2-0.9); Monocytes % 6.9 %; Neutrophils # 8.29 10^3/uL (1.8-7.7); Nucleated Red Blood Cells % 0 %; Platelet Count 313 10^3/cmm (157-399); Red Blood Count 5.13 10^6/uL (3.85-5.65); Red Cell Distribution Width 12.3 % (12.1-15.1); White Blood Count 10.76 10^3/uL (3.29-11.43)
[2025-04-14 14:34] LABS: D Dimer 0.33 ug/mLFEU (0-0.59)
[2025-04-14 14:40] LABS: Alanine Aminotransferase 25 U/L (0-41); Albumin Level 4.9 g/dL (3.5-5.2); Alcohol Level 122 mg/dL (0-10); Alkaline Phosphatase 76 U/L (40-130); Anion Gap 24.2 (5-19); Aspartate Amino Transferase 21 U/L (0-40); Blood Urea Nitrogen 14 mg/dL (6-20); Calcium 9.7 mg/dL (8.5-10.5); Carbon Dioxide 18 mmol/L (22-29); Chloride 98 mmol/L (98-107); Creatinine Clr Calc Pharmacy 78.9798; Globulin 2.8 g/dL (1.3-4.6); Glomerular Filtration Rate 64.4 mL/min (90-130); Glucose 113 mg/dL (65-115); Osmolality Calculated 283 mOsm/kg (285-295); Potassium 4.2 mmol/L (3.5-5.1); Sodium 136 mmol/L (136-145); Total Bilirubin 0.6 mg/dL (0.15-1.2); Total Protein 7.7 g/dL (6.6-8.7)
[2025-04-14 14:51] LABS: Troponin(5th) Baseline < 6 ng/L (0-15)
[2025-04-14] MEDS: thiamine 100 mg/mL 2mL SDV IVP (15:16)
[2025-04-14] MEDS: LORazepam 2 mg/mL INJ 1 mL 1 MG IVP (15:16)
[2025-04-14] MEDS: sodium chloride 0.9% 1,000 ML 999 ML IV ×2 (15:17→15:53)
[2025-04-14 15:38] VITALS: BP 132/83; PULSE 96; O2SAT 97
== END 2025-04-14 16:12 | disposition home or self-care (01) ==
PROVIDERS: Emergency Provider Emergency Medicine; PCP Physician Assistant
DX: R07.9 Chest pain, unspecified (principal); F10.129 Alcohol abuse with intoxication, unspecified; Y90.6 Blood alcohol level of 120-199 mg/100 ml
CPT/HCPCS: 36415; 71045; 80053; 80307; 84484; 85025; 85378; 93005; 96361; 96374; 96375; 96376; 99285; J2060; J3411; J7030